=== PATIENT | female | born 1990 | race Hispanic/Latino ===

== ENCOUNTER 2023-03-02 18:03 | Emergency (ER) | payer OTHER ==
[2023-03-02] MEDS ORDERED: Acetaminophen 500 MG TAB ONE (18:45)
== END 2023-03-02 19:28 | disposition home or self-care (01) ==
LOC: CSHERS 18:03
DX: Z77.098 Contact with and (suspected) exposure to other hazardous, chiefly nonmedicinal, chemicals (principal)
CPT/HCPCS: 71045